=== PATIENT | female | born 1930 | race Caucasian/White ===

== ENCOUNTER 2016-05-23 05:17 | Inpatient (IN) | payer OTHER, MEDICARE ==
[2016-05-17 11:26] LABS: HEMATOCRIT 35.8 % (37.0-47.0); HEMOGLOBIN 12.2 gm/dL (12.0-15.0); MCH 32.1 pg (26.0-34.0); MCHC 34.1 % (28.0-37.0); MCV 94.2 fL (80.0-100.0); RBC 3.8 mil/uL (4.20-5.00); RDW 13.1 % (10.5-14.5); WBC 5.2 thou/uL (4.0-11.0)
[2016-05-17 11:27] LABS: URINE BILIRUBIN NEGATIVE (Negative); URINE BLOOD TRACE (Negative); URINE COLOR YELLOW; URINE GLUCOSE-RANDOM* NEGATIVE (Negative); URINE KETONES NEGATIVE (Negative); URINE LEUKOCYTES-REFLEX 1+ (Negative); URINE PROTEIN (DIPSTICK) NEGATIVE (Negative); URINE SPECIFIC GRAVITY <= 1.005 (1.003-1.035); URINE UROBILINOGEN 0.2 E.U./dl (0.2-1.0)
[2016-05-17 11:35] LABS: CASTS None Seen /LPF (None Seen); CRYSTALS None Seen /LPF (None Seen); SQUAMOUS 0-3 Few /LPF (0-3); URINE RBC None Seen /HPF (0-2); URINE WBC-REFLEX >25 Many /HPF (0-5)
[2016-05-17 11:40] LABS: INR 1.1; PROTIME 11.1 Seconds (9.3-11.4)
[2016-05-17 11:44] LABS: CALCIUM 9.5 mg/dL (8.5-10.1); CREATININE 1.5 mg/dL (0.6-1.3); POTASSIUM 5.3 mmol/L (3.5-5.1)
[~2016-05-23] VITALS: Ht 167.6 cm; Wt 71.2 kg
--- NOTE | ~2016-05-23 | H ---
[facility] [address] [place] [address] HISTORY AND PHYSICAL Name: BYRDNUNUChance CASTRO Room #: 547-P DIS IN M.R.#: [id number] Admission: 05/23/16 Attend Phys: Sundar Lees Discharge: 05/25/16 Date of : 28 Report #: [id number] THIS REPORT FOR: //name// For History and Physical, please see office documentation/handwritten note in the patient's medical record. <ELECTRONICALLY SIGNED> By: Sundar Hidalgo MD 06/01/16 1227 1253 Sundar Hidalgo MD /
--- NOTE | ~2016-05-23 | O ---
[facility] [place] [address] OPERATIVE REPORT Name: NUNU BYRD Room #: 547-P [facility] IN M.R.#: [id number] Admission: 05/23/16 Attend Phys: Sundar Lees Discharge: 05/25/16 Date of : 28 Report #: [id number] THIS REPORT FOR: //name// CC: Jose Hidalgo DATE OF SERVICE: 05/23/2016 PREOPERATIVE DIAGNOSIS: Left shoulder rotator cuff tear arthropathy with biceps tendinopathy. 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 PROCEDURE PERFORMED: Left reverse total shoulder arthroplasty with open biceps tenodesis. SURGEON: Sundar Hidalgo M.D. STOCK LETTERER: Caty Stockton PA-C. ANESTHESIA: General with preoperative supraclavicular nerve block by Dr. Chris Stoner with indwelling catheter. FLUIDS: 400 mL crystalloid intraoperatively. ESTIMATED BLOOD LOSS: 25 mL. IMPLANTS UTILIZED: Delta Xtend standard metaglene with 38 eccentric glenosphere, CHÁVEZ coated Global Unite size 8 stem with size 1 eccentric epiphysis, 6-mm polyethylene. DESCRIPTION OF PROCEDURE: After proper identification of the patient and the operative site in preoperative holding area, the operative site was signed by myself. Prophylactic antibiotics given. The patient elected to receive an indwelling catheter for her block after discussing the risks, benefits, alternatives and potential complications with Dr. Stoner. After satisfactory block, the patient was brought back to the operative suite after induction of satisfactory general endotracheal anesthesia. The left shoulder was positioned with the patient in the beach chair position, head and neck were carefully positioned. Scapula was supported posteriorly and the left shoulder was sterilely prepped and draped in the usual manner. Final skin draping was with Ioban. A 9Lenses limb positioning system was utilized. Qualified marketing assistant manager was utilized for the entire procedure to aid in patient limb positioning, visualization and retraction of soft tissues, [address] [address] OPERATIVE REPORT Name: ROCHELLENUNU MATTHEW Room #: 547-P [facility] IN [place].Melisa.#: [id number] Admission: 05/23/16 Attend Phys: Sundar Lees Discharge: 05/25/16 Date of : 28 Report #: [id number] instrument passage closure and dressing application. Anterior deltopectoral approach was planned. Skin was incised sharply. Full thickness skin flaps were developed. Deltopectoral interval was identified and a Hunt deltoid retractor was used to retract the deltoid. Subdeltoid bursal tissue adhesions were carefully released. Upper border of the pectoralis major was released, long head of biceps tendon was tenodesed to the undersurface of the pectoralis tendon using #2 FiberWire. At the end of procedure, the pectoralis was repaired. Proximal aspect of the biceps was then followed superiorly. Bicipital groove was carefully opened and there was evidence of a massive rotator cuff tear. Inferior portion of the subscapularis was still intact on the humerus and this was released intact with a #2 FiberWire. Some of the peripheral osteophytes were removed. The humeral head was delivered. Oscillating saw was used to flatten the superior aspect of the head. There were advanced degenerative changes noted on the humerus. The glenoid demonstrated some chondral thinning, but did not have significant wear. Portion of the teres minor was still intact without significant infraspinatus present. At this point, intramedullary hand reaming up to a size 8 stem, which matched the preoperative templating, was performed. The humeral head guide was carefully positioned, and this was cut in approximately 10 degrees of retroversion. Next, a protection plate was placed on the proximal aspect of this, and a lamina transportation engineer was used to distract the joint while the remaining biceps tendon and labrum was carefully excised. The inferior capsule was released off the glenoid side as well as a small portion of the triceps insertion. The anterior capsule was carefully from the subscapularis and resected as well. Care was taken to preserve the axillary nerve throughout the entire procedure. After there was satisfactory glenoid exposure, the metaglene guide pin was inserted. This was placed as inferior as possible. Glenoid face was reamed. Any peripheral soft tissue was carefully removed. The Herbie reamer was then utilized to remove any superior bone. Next, a step drill was utilized. The glenoid vault was still contained. Standard metaglene was carefully impacted into position with superior and inferior locking screws inserted as well as anterior and posterior nonlocking screws. There was excellent purchase by all screws. These were sequentially tightened and the locking screws were tightened. A 38 eccentric glenosphere was inserted over a guidewire. The screw was rotated counterclockwise till it was felt like it was seated. This was then carefully advanced impacted, advanced impacted, advanced impacted and then finally tightened. The glenosphere was fully seated. There appeared to be no impingement. Next, the proximal epiphyseal portion of the humerus was reamed to accommodate a size 1 epiphysis. A Global Unite stem was prepared. This was CHÁVEZ coated. There appeared to be reasonable bone quality for a press-fit stem. Two #2 FiberWires were placed along the more inferior aspect of the lesser tuberosity through drill holes for repair of the subscapularis. Antibiotic irrigant was utilized to irrigate the wound multiple times throughout the procedure and even prior to any implant [facility] [address] [address] OPERATIVE REPORT Name: NUNU BYRD Room #: 547-P DIS IN M.R.#: [id number] Admission: 05/23/16 Attend Phys: Sundar Lees Discharge: 05/25/16 Date of : 28 Report #: [id number] implantation. After the humeral stem was impacted, trial polyethylene of +3 and +6 were utilized. The +6 appeared to provide the best soft tissue fit and feel. There was no propensity for dislocation. This was removed and a +6 cross-linked polyethylene liner was carefully impacted into position. The humerus was reduced. Wound was again thoroughly irrigated with antibiotic irrigant. Subscapularis was repaired with two #2 FiberWires in a modified Bharat-Tanner technique. One gram of vancomycin powder was utilized; one half of this was placed deep and the other half in a more superficial closure aspect. The 0 Vicryl was used to close the deltopectoral interval, 2-0 Vicryl for subcutaneous tissues and final skin closure with running 4-0 Monocryl. The wound was reprepped with ChloraPrep. Dermabond was used to seal the wound and was the final aspect of the skin closures. Sterile dressing was applied as well as a sling and abduction pillow. At the time of dictation, the patient was still in the operative suite with anticipated discharge to recovery room in stable condition. <ELECTRONICALLY SIGNED> By: Sundar Hidalgo MD 06/01/16 1227 1442 1624 Sundar Hidalgo MD /nt
--- NOTE | ~2016-05-23 | EKG ---
[address] [address] ELECTROCARDIOGRAM REPORT Name: NUNU BYRD Room #: PRE IN M.RSho#: [id number] Admission: Attend Phys: Sundar Lees Discharge: Date of : 28 Report #: [id number] THIS REPORT FOR: //name// [facility] Test Date: 2016-05-17 Test Time: 10:38:39 Pat Name: NUNU BYRD Department: Room: Gender: F Welding Machine Tender: isabela lea : 1930 Requested By: Sundar Hidalgo Order Number: [id number] MD: Cuong Mason Measurements Intervals Morton Rate: 92 P: 52 IN: 197 QRS: 45 QRSD: 140 T: 62 QT: 375 QTc: 464 Interpretive Statements Sinus rhythm Right bundle branch block No previous ECG available for comparison Electronically Signed On 05-17-2016 15:45:52 [employer] TEST TECHNICIAN by Cuong Mason [email or web address] <ELECTRONICALLY SIGNED> By: Cuong Mason MD 05/17/16 1545 1038 MD NIR Albright
[~2016-05-23 05:17] MED LIST: ALLERGY RELIEF10 M3 PO; AVAPRO300 MG PO; BIOTIN1 MG; CA ZN PO; CAL-CITRATE PL1 EACH PO; CRANBERRY400 M1 PO; CYCLOBENZAPRINE10 MG PO; GABAPENTIN PO; GABAPENTIN100 MG PO; GELATIN600 MG PO; GLUCOPHAGE500 MG PO; IBUPROFEN 200200 M1 PO; KETONE; LEVOTHYROXIN0.112 M1 PO; LIPITOR10 MG PO; LUTEIN-ZEAXANT1 EACH PO; MOBIC7.5 M1 PO; MULTIVITAMINS1 EAC7 PO; NAPROSYN500 MG PO; NEURONTIN 300300 M1 PO; NEURONTIN100 MG PO; OCCUVITE PO; OMEGA-3 KRILL1 EACH PO; PERCOCET 5-3251 EACH PO; PERCOCET PO; PROLOPRIM100 MG PO; RELAFEN500 MG PO; SYSTANE GEL EYE10 ML; VITAMIN B-122500 MCG SL; VITAMIN D3400 UNIT PO; VITAMIN D35000 UNI1 PO; VITAMINC500 PO; [UNRECOGNIZED DRUG - OTHER]; [UNRECOGNIZED DRUG - OTHER] OPHTHALMIC; [UNRECOGNIZED DRUG - OTHER] OPHTHALMIC
[2016-05-23 11:34] VITALS: BP 132/80
[2016-05-23 21:09] VITALS: BP 128/75
[2016-05-23 23:14] VITALS: BP 112/60
[2016-05-24 03:20] VITALS: BP 119/60
[2016-05-24 04:49] LABS: HEMATOCRIT 31.5 % (37.0-47.0); HEMOGLOBIN 10.6 gm/dL (12.0-15.0)
[2016-05-24 05:03] LABS: POTASSIUM 4.3 mmol/L (3.5-5.1)
[2016-05-24 09:00] VITALS: BP 111/61
[2016-05-24 16:29] VITALS: BP 119/54
[2016-05-24 20:00] VITALS: BP 106/60
[2016-05-25 04:00] VITALS: BP 105/52
[2016-05-25 08:31] VITALS: BP 101/55
[2016-05-25 09:27] VITALS: BP 101/55
[2016-05-25] MEDS ORDERED: ASPIRIN325 PO (10:03)
== END 2016-05-25 10:35 | disposition home or self-care (01) | DRG 483 ==
LOC: 5S 05:17 → TBA 05:17 → PRE 09:52 → 5S 16:10
PROVIDERS: Orthopaedic Surgery Sports Medicine; Physician Assistant Surgical
DX: M75.102 Unspecified rotator cuff tear or rupture of left shoulder, not specified as traumatic (principal); E03.9 Hypothyroidism, unspecified; E78.5 Hyperlipidemia, unspecified; Z96.652 Presence of left artificial knee joint; I10 Essential (primary) hypertension; M75.22 Bicipital tendinitis, left shoulder; E11.9 Type 2 diabetes mellitus without complications; Z98.42 Cataract extraction status, left eye; Z98.41 Cataract extraction status, right eye; Z79.4 Long term (current) use of insulin; Z88.2 Allergy status to sulfonamides; Z88.6 Allergy status to analgesic agent; Z79.899 Other long term (current) drug therapy; Z82.61 Family history of arthritis
CPT/HCPCS: 10785; 50010; 50101; 50172; 50382; 50386; 50417; 50612; 50697; 50733; 50935; 51751; 51771; 52138; 53000; 53078; 53371; 54118; 56521; 56524; 56525; 56526; 56530; 57095; 62110; 62900; 65060; 70005